=== PATIENT | male | born 1955 | race Caucasian/White ===

== ENCOUNTER 2018-03-02 18:59 | Emergency (ER) | payer BC ==
[2018-03-02 20:26] VITALS: BP 136/79
[2018-03-02] MEDS ORDERED: diPHENhydraMINE PO* 25 MG PO ONE (20:48)
--- NOTE | 2018-03-02 20:55 | UC ---
Skin Complaint HPI - HPI Summary HPI Summary: states he started with a rash on arms from the hem of his tshirt down 3 days ago which started to itch. 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 Denies fever, rash any other place, or malaise . Calamine relieves itching for some minutes then it recurs. - History of Current Complaint Chief Complaint: UCRash Time Seen by Provider: 03/02/18 20:18 Stated Complaint: RASH ON BOTH ARMS Hx Obtained From: Patient Onset/Duration: Sudden Onset, Lasting Days Skin Exposure Onset/Duration: Days Ago Onset Severity: Mild Current Severity: Mild Pain Intensity: 0 Location: Other - distal arms and forearms Character: Pruritus Aggravating Factor(s): Nothing Alleviating Factor(s): OTC Meds Associated Signs & Symptoms: Positive: Negative Related History: Possible Reaction to: Environmental Exposure - Allergy/Home Medications Allergies/Adverse Reactions: Allergies Allergy/AdvReac Type Severity Reaction Status Date / Time No Known Allergies Allergy Verified 03/02/18 20:27 Review of Systems Constitutional: Negative All Other Systems Reviewed And Are Negative: Yes PMH/Surg Hx/FS Hx/Imm Hx Previously Healthy: Yes - Surgical History Surgical History: Yes Surgery Procedure, Year, and Place: appy - Social History Alcohol Use: Rare Substance Use Type: None Smoking Status (MU): Never Smoked Tobacco Physical Exam Triage Information Reviewed: Yes Appearance: Well-Appearing Vital Signs: Initial Vital Signs Temp 98.4 F 03/02/18 20:20 Pulse 57 03/02/18 20:20 Resp 16 03/02/18 20:20 BP 136/79 03/02/18 20:20 Pulse Ox 100 03/02/18 20:20 Vital Signs Reviewed: Yes Eyes: Positive: Conjunctiva Clear Neck: Positive: Supple Respiratory: Positive: No respiratory distress Cardiovascular: Positive: Pulses Normal, Brisk Capillary Refill Skin Exam: Other - maculo papular rash with areas where they coalesce on distal arms and forearms f/l. No lesions on soles or palms, no mucosaal lesions Course/Dx - Course Course Of Treatment: contact dermatitis, start medication as prescribed, f/u with PCP in 1 week - Diagnoses Provider Diagnoses: Contact dermatitis. Poison sabina Discharge - Sign-Out/Discharge Documenting (check all that apply): Discharge/Admit/Transfer - Discharge Plan Condition: Stable Disposition: HOME Prescriptions: Fluocinonide 0.05% CM (NF) [Lidex 0.05% CREAM (NF)] 1 applic TOPICAL DAILY 7 Days #1 tube predniSONE TAB* [Deltasone TAB*] 40 mg PO DAILY 5 Days #10 tab Patient Education Materials: Prednisone (By mouth), Contact Dermatitis (ED), Poison Sabina (ED) Referrals: Loretta Malik MD [Primary Care Provider] - - Billing Disposition and Condition Condition: STABLE Disposition: HOME
== END 2018-03-02 21:02 | disposition home or self-care (01) ==
LOC: UCCORT 18:59
DX: L23.7 Allergic contact dermatitis due to plants, except food (principal)
CPT/HCPCS: 99202; A9270-GY; G0463